=== PATIENT | female | born 1945 ===

== ENCOUNTER 2018-06-07 11:46 | Outpatient (CLI) | payer OTHER | END 2018-06-07 11:48 | disposition home or self-care (01) | LOC: SONOGRAMA 11:46 | DX: E04.1 Nontoxic single thyroid nodule (principal) ==

== ENCOUNTER 2019-01-03 10:19 | Outpatient (CLI) | payer OTHER | END 2019-01-03 10:23 | disposition home or self-care (01) | LOC: SONOGRAMA 10:19 | DX: E04.2 Nontoxic multinodular goiter (principal) ==